=== PATIENT | female | born 1940 ===

== ENCOUNTER 2023-07-10 17:43 | Outpatient (REF) | payer OTHER, SELFPAY | END 2023-07-10 17:44 | disposition home or self-care (01) | LOC: HO.CHCLNP 17:43 | PROVIDERS: Visit Provider Family Medicine | DX: J40 Bronchitis, not specified as acute or chronic (principal); R30.0 Dysuria; Z20.828 Contact with and (suspected) exposure to other viral communicable diseases; Z11.52 Encounter for screening for COVID-19 | CPT/HCPCS: 0241U; 87086 ==